=== PATIENT | male | born 1965 | race Caucasian/White ===

== ENCOUNTER 2016-09-12 11:49 | Inpatient (IN) | payer BC, MEDICARE ==
[~2016-09-12] VITALS: Ht 167.6 cm; Wt 112.9 kg
[2016-09-12 11:52] VITALS: BP 134/85; PULSE 88; RESP 20; TEMP 99.7; O2SAT 98
--- NOTE | 2016-09-12 11:57 | PD ---
Physical Exam Date Seen by Provider: Sep 12, 2016 Time Seen by Provider: 11:55 Data Data Last Documented VS Vital Signs Date Time Temp Pulse Resp B/P Pulse Ox O2 Delivery O2 Flow Rate FiO2 09/12/16 11:52 99.7 88 20 134/85 98 Room Air MDM Supervised Visit with ЕЛЕНА: No Narrative Course 50 YO M with complaint redness, pain of the LLE x 4 days. ++F/C. ++N/V. IV Rocephin at [facility]. PO Bactrim since Tuesday. Vitals reviewed. Seen in triage, awaiting bed placement. Kellen Pineda Sep 12, 2016 11:57
[2016-09-12] MEDS ORDERED: PIPERACIL-TAZO 4.5 GM PREMIX 100 ML IV STA (12:06)
[2016-09-12] MEDS ORDERED: VANCOMYCIN INJ 1,000 MG in SODIUM CHLOR 0.9% 250 ML INJ 250 ML IV STA (12:06)
[2016-09-12 12:15] VITALS: BP 125/61; PULSE 89; RESP 20; TEMP 99.2; O2SAT 98
--- NOTE | 2016-09-12 12:15 | PD ---
HPI Chief Complaint: Edema Time Seen by Provider: 12:04 Travel History International Travel<30 days: No Contact w/Intl Traveler<30days: No Traveled to known affect area: No History of Present Illness HPI left leg swelling and redness over past 2 weeks just started on abx about 2 days ago, but concerned that is looking worse, swelling is only to LLE [facility] Social History Tobacco Use: Yes Allergies-Medications (Allergen,Severity, Reaction): Coded Allergies: No Known Allergies (Unverified , 09/12/16) Reported Meds & Prescriptions Reported Meds & Active Scripts Active No Active Prescriptions or Reported Medications Review of Systems Except as stated in HPI: all other systems reviewed are Neg Skin: Positive Lesions Physical Exam Narrative GENERAL: SKIN: Warm and dry.....LLE EDEMATOUS, CELLULITIC CHANGES SORROUNDING ENTIRE TIB FIB AREA, NO STREAKING, NO LAD HEAD: Atraumatic. Normocephalic. EYES: Pupils equal and round. No scleral icterus. No injection or drainage. ENT: No nasal bleeding or discharge. Mucous membranes pink and moist. NECK: Trachea midline. No JVD. CARDIOVASCULAR: Regular rate and rhythm. RESPIRATORY: No accessory muscle use. Clear to auscultation. Breath sounds equal bilaterally. GASTROINTESTINAL: Abdomen soft, non-tender, nondistended. Hepatic and splenic margins not palpable. MUSCULOSKELETAL: Extremities without clubbing, cyanosis, or edema. No obvious deformities. NEUROLOGICAL: Awake and alert. No obvious cranial nerve deficits. Motor grossly within normal limits. Five out of 5 muscle strength in the arms and legs. Normal speech. PSYCHIATRIC: Appropriate mood and affect; insight and judgment normal. Data Data Last Documented VS Vital Signs Date Time Temp Pulse Resp B/P Pulse Ox O2 Delivery O2 Flow Rate FiO2 09/12/16 12:15 99.2 89 20 125/61 98 Room Air Orders Complete Blood Count With Diff (09/12/16 12:06) Comprehensive Metabolic Panel (09/12/16 12:06) Prothrombin Time / Inr (Pt) (09/12/16 12:06) Act Partial Throm Time (Ptt) (09/12/16 12:06) Lactic Acid Sepsis Protocol (09/12/16 12:06) Urinalysis - C+S If Indicated (09/12/16 12:06) Blood Culture (09/12/16 12:06) Blood Glucose (09/12/16 12:06) Ecg Monitoring (09/12/16 12:06) Iv Access Insert/Monitor (09/12/16 12:06) Oximetry (09/12/16 12:06) Oxygen Administration (09/12/16 12:06) Piperacil-Tazo 4.5 Gm Premix (Zosyn 4.5 (09/12/16 12:06) Vancomycin Inj (Vancomycin Inj) (09/12/16 12:06) Us Leg Venous Doppler (09/12/16 12:06) Urine Culture (09/12/16 12:00) Acetaminophen (Tylenol) (09/12/16 14:15) Admit Order (Ed Use Only) (09/12/16 14:29) Labs Laboratory Tests Test 09/12/16 09/12/16 12:00 12:15 Urine Color YELLOW Urine Turbidity CLEAR Urine pH 8.0 Urine Specific [place] 1.021 Urine Protein 30 mg/dL Urine Glucose (UA) 150 mg/dL Urine Ketones NEG mg/dL Urine Occult Blood SMALL Urine Nitrite NEG Urine Bilirubin NEG Urine Urobilinogen 2.0 MG/DL Urine Leukocyte Esterase NEG Urine RBC 11 /hpf Urine WBC 2 /hpf Urine Bacteria RARE /hpf Microscopic Urinalysis Comment CATH-CULTURE IND White Blood Count 12.2 TH/MM3 Red Blood Count 4.20 MIL/MM3 Hemoglobin 12.9 GM/DL Hematocrit 37.9 % Mean Corpuscular Volume 90.2 FL Mean Corpuscular Hemoglobin 30.7 PG Mean Corpuscular Hemoglobin 34.0 % Concent Red Cell Distribution Width 14.0 % Platelet Count 181 TH/MM3 Mean Platelet Volume 8.5 FL Neutrophils (%) (Auto) 88.5 % Lymphocytes (%) (Auto) 6.6 % Monocytes (%) (Auto) 3.9 % Eosinophils (%) (Auto) 0.9 % Basophils (%) (Auto) 0.1 % Neutrophils # (Auto) 10.8 TH/MM3 Lymphocytes # (Auto) 0.8 TH/MM3 Monocytes # (Auto) 0.5 TH/MM3 Eosinophils # (Auto) 0.1 TH/MM3 Basophils # (Auto) 0.0 TH/MM3 CBC Comment DIFF FINAL Differential Comment Prothrombin Time 11.0 SEC Prothromb Time International 1.0 RATIO Ratio Activated Partial 35.2 SEC Thromboplast Time Sodium Level 135 MEQ/L Potassium Level 4.3 MEQ/L Chloride Level 102 MEQ/L Carbon Dioxide Level 25.3 MEQ/L Anion Gap 8 MEQ/L Blood Urea Nitrogen 8 MG/DL Creatinine 1.07 MG/DL Estimat Glomerular Filtration 73 ML/MIN Rate Random Glucose 168 MG/DL Lactic Acid Level 1.6 mmol/L Calcium Level 8.6 MG/DL Total Bilirubin 0.3 MG/DL Aspartate Amino Transf 29 U/L (AST/SGOT) Alanine Aminotransferase 68 U/L (ALT/SGPT) Alkaline Phosphatase 77 U/L Total Protein 6.8 GM/DL Albumin 3.0 GM/DL MDM Medical Decision Making Medical Screen Exam Complete: Yes Emergency Medical Condition: Yes Medical Record Reviewed: Yes Differential Diagnosis CELLULITIS V DVT Narrative Course ULTRASOUND NEG DVT, BUT DID SHOW LARGE LYMPHADENOPATHY, C/W LLE CELLULITIS WILL ADMIT FOR IV ABX (GIVEN ZOSYN AND VANCO IN ED) Physician Communication Physician Communication D/W DR LANCASTER FOR ADMISSION AND FURTHER CARE Diagnosis Primary Impression: LLE CELLULITIS Admitting Information Admitting Physician Requests: Observation Scripts No Active Prescriptions or Reported Meds Willis Saini MD Sep 12, 2016 12:15
[2016-09-12 12:42] LABS: AUTOMATED NEUTROPHIL # 10.8 TH/MM3 (1.8-7.7); BASOPHIL % 0.1 % (0.0-2.0); EOSINOPHIL # 0.1 TH/MM3 (0-0.4); EOSINOPHIL % 0.9 % (0.0-4.0); HEMATOCRIT 37.9 % (39.0-51.0); HEMO FLAGS DIFF FINAL; LYMPH % 6.6 % (9.0-44.0); LYMPHOCYTE # 0.8 TH/MM3 (1.0-4.8); MEAN CELL VOLUME 90.2 FL (80.0-100.0); MEAN CORPUSCULAR HEMOGLOBIN 30.7 PG (27.0-34.0); MONO % 3.9 % (0.0-8.0); NEUT % 88.5 % (16.0-70.0); PLATELET COUNT 181 TH/MM3 (150-450); WHITE BLOOD COUNT 12.2 TH/MM3 (4.0-11.0)
[2016-09-12 12:50] LABS: BACTERIA, URINE RARE /hpf; BLOOD, URINE SMALL (NEG); COMMENT (UR) CATH-CULTURE IND; CULTURE IF INDICATED CATH CULTURE IND; GLUCOSE,URINE 150 mg/dL (NEG); KETONE, URINE NEG (NEG); NITRITE,URINE NEG (NEG); URINE COLOR YELLOW (YELLW/STRAW)
[2016-09-12 13:07] LABS: APTT (PATIENT) 35.2 SEC (24.3-30.1)
[2016-09-12 13:14] LABS: ALKALINE PHOSPHATASE 77 U/L (45-117); TOTAL BILIRUBIN ADULT 0.3 MG/DL (0.2-1.0)
[2016-09-12 13:18] LABS: ALT (GPT) 68 U/L (12-78); ANION GAP 8 MEQ/L (5-15); AST (GOT) 29 U/L (15-37); BICARBONATE 25.3 MEQ/L (21.0-32.0); BLOOD UREA NITROGEN 8 MG/DL (7-18); CHLORIDE 102 MEQ/L (98-107); GLOMERULAR FILTRATION RATE 73 ML/MIN (>89); POTASSIUM 4.3 MEQ/L (3.5-5.1); SODIUM (NA) 135 MEQ/L (136-145)
[2016-09-12] MEDS ORDERED: ACETAMINOPHEN 325 MG TAB PO ONE (14:15)
--- NOTE | 2016-09-12 14:40 | RADRPT ---
EXAM DATE/TIME: 09/12/2016 13:46 [place] COMPARISON: No previous studies available for comparison. INDICATIONS : Left leg swelling. MEDICAL HISTORY : Re-occuring cellulitis. Alcohol use. SURGICAL HISTORY : None. ENCOUNTER: Initial ACUITY: 2 weeks PAIN SCORE: 6/10 LOCATION: Left leg. TECHNIQUE: Venous ultrasound of the leg was performed from the inguinal ligament to the proximal calf. Real-poppy e, color Doppler and spectral tracing, compression and augmentation techniques were used. FINDINGS: There is normal compressibility of the deep venous system from the inguinal region to the proximal ca lf. No echogenic clot is seen in the lumen of the common femoral, femoral, popliteal, and posterior tibial veins. There is a normal response of the venous system to proximal and distal augmentation an d respiration. Incidental note is made of multiple enlarged left inguinal nodes with the largest measuring 4.9 x 3.3 x 2.1 cm. CONCLUSION: 1. No sonographic evidence for left lower extremity DVT. 2. Incidental note made of nonspecific but prominent left inguinal adenopathy. Clinical correlation i s recommended. Salbador Chapman MD on September 12, 2016 at 14:36 Board Certified Radiologist. This report was verified electronically.
--- NOTE | 2016-09-12 15:16 | HHI.HP ---
[facility] Primary Care Physician Geovany Meyer DO Admission Diagnosis LLE CELLULITIS FAILED OUTPATIENT THERAPY Diagnoses: Chief Complaint: leg swelling, fever, chills Travel History International Travel<30 Days: No Contact w/Intl Traveler <30 Da: No Traveled to Known Affected Are: No History of Present Illness This a 50-year-old male who is generally in good health, prior history of cellulitis of the left leg in 2016. Patient presented to the emergency room with left leg swelling, redness and fever and chills. According to the patient , he was on vacation last week and his left leg started to become swollen and tender. He had chills and fever and N/V. He went to a urgent care center and was given IV Rocephin and was prescribed by mouth Bactrim,which he has been taking. states that last year he had a similar admission at [facility] and was hospitalized for 3 days. States that the left leg always has chronic swelling and discoloration, but this was significantly more. Patient states that last night his fever went up to 102.4 and he had chills. Has had poor appetite. He denies any cough, no sputum production. States that what is moist painful is the left groin and there is swelling noted. In the emergency room, patient was evaluated. Laboratory workup completed significant for leukocytosis, WBC 12.2. He was noted with elevated blood glucose 168. Patient denies any history of diabetes. Ultrasound of the leg was completed that show large lymphadenopathy negative for DVT. Patient was started on empiric antibiotics and cultures were obtained. Lactic acid was negative. Patient is admitted for further evaluation and treatment. Review of Systems Constitutional: COMPLAINS OF: Diaphoretic episodes, Fever, Weight loss, Change in appetite, DENIES: Fatigue, Weight gain, Chills, Dizziness, Night Sweats Endocrine: DENIES: Heat/cold intolerance, Polydipsia, Polyuria, Polyphagia Eyes: DENIES: Blurred vision, Diplopia, Eye inflammation, Eye pain, Vision loss , Photosensitivity, Double Vision Ears, nose, mouth, throat: DENIES: Tinnitus, Hearing loss, Vertigo, Nasal discharge, Oral lesions, Throat pain, Hoarseness, Ear Pain, Running Nose, Epistaxis, Sinus Pain, Toothache, Odynophagia Respiratory: DENIES: Apneas, Cough, Snoring, Wheezing, Hemoptysis, Sputum production, Shortness of breath Cardiovascular: COMPLAINS OF: Lower Extremity Edema, DENIES: Chest pain, Palpitations, Syncope, Dyspnea on Exertion, PND, Orthopnea, Claudication Gastrointestinal: DENIES: Abdominal pain, Black stools, Bloody stools, Constipation, Diarrhea, Nausea, Vomiting, Difficulty Swallowing, Anorexia Genitourinary: DENIES: Sexual dysfunction, Urinary frequency, Urinary incontinence, Urgency, Hematuria, Dysuria, Nocturia, Penile Discharge, Testicular Pain, Testicular Swelling Musculoskeletal: COMPLAINS OF: Joint pain (left groin and leg pain, swelling. Redness. ), DENIES: Muscle aches, Stiffness, Joint Swelling, Back pain, Neck pain Integumentary: DENIES: Abnormal pigmentation, Nail changes, Pruritus, Rash Hematologic/lymphatic: DENIES: Bruising, Lymphadenopathy Immunologic/allergic: DENIES: Eczema, Urticaria Neurologic: DENIES: Abnormal gait, Headache, Localized weakness, Paresthesias, Seizures, Speech Problems, Tremor, Poor Balance Psychiatric: DENIES: Anxiety, Confusion, Mood changes, Depression, Hallucinations, Agitation, Suicidal Ideation, Homicidal Ideation, Delusions Past Family Social History Past Medical History Left cellulitis, was hospitalized last year on IV abx Obesity, has gained weight Elevated LFTs after taking Lamisil Past Surgical History None Reported Medications Reported Meds & Active Scripts Active No Active Prescriptions or Reported Medications Allergies: Coded Allergies: No Known Allergies (Unverified , 09/12/16) Active Ordered Medications Inpatient Medications Acetaminophen 650 mg 650 mg ONCE ONCE PO Last administered on 09/12/16 14:25 ; Start 09/12/16 at 14:15; Stop 09/12/16 at 14:16; Status DC Enoxaparin Sodium (Lovenox Inj) 40 mg Q24H SQ ; Start 09/12/16 at 15:15; Status UNV Famotidine (Pepcid) 20 mg BID PO ; Start 09/12/16 at 21:00; Status UNV Piperacillin Sod/ Tazobactam Sod (Zosyn 4.5 Gm Premix) 100 ml @ 200 mls/hr ONCE STAT IV Last administered on 09/12/16 12:22; Start 09/12/16 at 12:06; Stop 09/12/16 at 12:35; Status DC Vancomycin HCl/ Sodium Chloride (Vancomycin Inj/ NS 250 ml Inj) 250 ml @ 250 mls/hr Q12H IV ; Start 09/13/16 at 00:00 Family History mother alive and well, hx of DM father , lung cancer Social History Patient is disabled due to chronic back pain He denies any smoking, chews tobacco No alcohol, no substance abuse patient is , has children Physical Exam Vital Signs Vital Signs Date Time Temp Pulse Resp B/P Pulse Ox O2 Delivery O2 Flow Rate FiO2 09/12/16 12:15 99.2 89 20 125/61 98 Room Air 09/12/16 12:14 97 Room Air 09/12/16 12:04 Room Air 09/12/16 11:52 99.7 88 20 134/85 98 Room Air Physical Exam GENERAL: This is a well-nourished, well-developed patient, in no apparent distress. SKIN: No rashes, ecchymoses or lesions. Cool and dry. HEAD: Atraumatic. Normocephalic. No temporal or scalp tenderness. EYES: Pupils equal round and reactive. Extraocular motions intact. No scleral icterus. No injection or drainage. ENT: Nose without bleeding, purulent drainage or septal hematoma. Throat without erythema, tonsillar hypertrophy or exudate. Uvula midline. Airway patent. NECK: Trachea midline. No JVD or lymphadenopathy. Supple, nontender, no meningeal signs. CARDIOVASCULAR: Regular rate and rhythm without murmurs, gallops, or rubs. RESPIRATORY: Clear to auscultation. Breath sounds equal bilaterally. No wheezes , rales, or rhonchi. GASTROINTESTINAL: Abdomen soft, non-tender, nondistended. No hepato-splenomegaly , or palpable masses. No guarding. MUSCULOSKELETAL: Extremities without clubbing, cyanosis. No joint tenderness, effusion, or edema noted. No calf tenderness. Negative Homans sign bilaterally. Left lower extremity with significant erythema surrounding the entire tib-fib area, there is some erythema to the upper thigh and left groin. Left groin lymphadenopathy, tender to palpation. Pedal pulses 2+ bilaterally. Trace right ankle edema. NEUROLOGICAL: Awake and alert. Cranial nerves II through XII intact. Motor and sensory grossly within normal limits. Five out of 5 muscle strength in all muscle groups. Normal speech. Laboratory Laboratory Tests Test 09/12/16 09/12/16 12:00 12:15 Urine Color YELLOW Urine Turbidity CLEAR Urine pH 8.0 Urine Specific [place] 1.021 Urine Protein 30 Urine Glucose (UA) 150 Urine Ketones NEG Urine Occult Blood SMALL Urine Nitrite NEG Urine Bilirubin NEG Urine Urobilinogen 2.0 Urine Leukocyte Esterase NEG Urine RBC 11 Urine WBC 2 Urine Bacteria RARE Microscopic Urinalysis Comment CATH-CULTURE IND White Blood Count 12.2 Red Blood Count 4.20 Hemoglobin 12.9 Hematocrit 37.9 Mean Corpuscular Volume 90.2 Mean Corpuscular Hemoglobin 30.7 Mean Corpuscular Hemoglobin 34.0 Concent Red Cell Distribution Width 14.0 Platelet Count 181 Mean Platelet Volume 8.5 Neutrophils (%) (Auto) 88.5 Lymphocytes (%) (Auto) 6.6 Monocytes (%) (Auto) 3.9 Eosinophils (%) (Auto) 0.9 Basophils (%) (Auto) 0.1 Neutrophils # (Auto) 10.8 Lymphocytes # (Auto) 0.8 Monocytes # (Auto) 0.5 Eosinophils # (Auto) 0.1 Basophils # (Auto) 0.0 CBC Comment DIFF FINAL Differential Comment Prothrombin Time 11.0 Prothromb Time International 1.0 Ratio Activated Partial 35.2 Thromboplast Time Sodium Level 135 Potassium Level 4.3 Chloride Level 102 Carbon Dioxide Level 25.3 Anion Gap 8 Blood Urea Nitrogen 8 Creatinine 1.07 Estimat Glomerular Filtration 73 Rate Random Glucose 168 Lactic Acid Level 1.6 Calcium Level 8.6 Total Bilirubin 0.3 Aspartate Amino Transf 29 (AST/SGOT) Alanine Aminotransferase 68 (ALT/SGPT) Alkaline Phosphatase 77 Total Protein 6.8 Albumin 3.0 Date/Time Procedure Status Source Growth 09/12/16 12:15 Aerobic Blood Culture Received Blood Peripheral Pending 09/12/16 12:15 Anaerobic Blood Culture Received Blood Peripheral Pending 09/12/16 12:00 Urine Culture Received Urine Catheterized Urine Pending Result Diagram: 09/12/16 1215 09/12/16 1215 Assessment and Plan Problem List: (1) Failure of outpatient treatment (2) Left leg cellulitis (3) History of cellulitis (4) Obesity (5) Hyperglycemia (6) Lymphadenopathy Assessment and Plan Admit to Dr. Rene 50-year-old male presented to the emergency room with complains of left leg redness, tenderness, swelling, left groin pain. Diagnosed with cellulitis and given Rocephin and by mouth Bactrim as OP. Patient continues to have fever, chills and increased redness and tenderness. Left leg cellulitis, failure of outpatient therapy Left lymphadenopathy -Continue with empiric antibiotics Follow cultures -Patient will be ordered appropriate pain management Hyperglycemia, patient denies history of diabetes. Endorses family history maternal side Hemoglobin A1c in the morning Obesity, indicates he has gained weight since turning 41 Has been counseled about weight loss, portion control Lovenox for DVT prophylaxis Pepcid for GI prophylaxis Plan of care has been discussed with the patient and his , their questions answered in detail. Plan of care discussed with attending and registered nurse. Further management of the patient will be dependent on the hospital course This patient was seen by myself and Dr. Reen, this H&P is written on his behalf Physician Certification 2 Midnight Certification Type: Admission for Inpatient Services Order for Inpatient Services The services are ordered in accordance with Medicare regulations or non- Medicare payer requirements, as applicable. In the case of services not specified as inpatient-only, they are appropriately provided as inpatient services in accordance with the 2-midnight benchmark. Estimated LOS (days): 2 2 days is the estimated time the patient will need to remain in the hospital, assuming treatment plan goals are met and no additional complications. Post-Hospital Plan: Home Problem Qualifiers (1) Obesity: Rula Pinto Sep 12, 2016 15:16
[2016-09-12] MEDS ORDERED: DOCUSATE SODIUM 100 MG CAP PO PRN (15:30)
[2016-09-12] MEDS ORDERED: ACETAMINOPHEN 325 MG TAB PO PRN (15:30)
[2016-09-12] MEDS ORDERED: MAGNESIUM HYDROXIDE SUSP 30 ML CUP PO PRN (15:30)
[2016-09-12] MEDS ORDERED: ONDANSETRON HCL 4 MG/2 ML VIAL IV PRN (15:30)
[2016-09-12] MEDS ORDERED: ALUMINUM/MAGNESIUM/SIMETH 30 ML CUP PO PRN (15:30)
[2016-09-12 17:08] VITALS: BP 110/55; PULSE 81; RESP 24; O2SAT 99
[2016-09-12 17:34] VITALS: BP 119/68; PULSE 81; RESP 16; TEMP 100.2; O2SAT 97
[2016-09-12] MEDS: ENOXAPARIN SODIUM 40 MG/0.4 ML SYRINGE SQ SCH (17:50)
[2016-09-12] MEDS: LEVOFLOXACIN 500 MG TAB PO SCH (17:50)
[2016-09-12] MEDS: CLINDAMYCIN INJ 600 MG in SODIUM CHLORIDE 0.9% INJ 100 ML IV SCH (17:51)
[2016-09-12 20:00] VITALS: BP 132/64; PULSE 86; RESP 20; TEMP 100.9; O2SAT 95
[2016-09-12] MEDS: FAMOTIDINE 20 MG TAB PO SCH (21:23)
[2016-09-13] MEDS: CLINDAMYCIN INJ 600 MG in SODIUM CHLORIDE 0.9% INJ 100 ML IV SCH ×4 (00:57→23:59)
[2016-09-13] MEDS: VANCOMYCIN INJ 1,000 MG in SODIUM CHLOR 0.9% 250 ML INJ 250 ML IV SCH ×2 (01:14→12:16)
[2016-09-13 04:01] LABS: MEAN CELL VOLUME 90.4 FL (80.0-100.0); MEAN CORPUSCULAR HEMOGLOBIN 30.6 PG (27.0-34.0); MEAN CORPUSCULAR HGB CONC 33.8 % (32.0-36.0); PLATELET COUNT 175 TH/MM3 (150-450); RED BLOOD COUNT 3.98 MIL/MM3 (4.50-5.90); RED CELL DISTRIBUTION WIDTH 14.1 % (11.6-17.2); REVIEW FLAG FINAL; WHITE BLOOD COUNT 11.6 TH/MM3 (4.0-11.0)
[2016-09-13 04:26] LABS: ANION GAP 8 MEQ/L (5-15); BICARBONATE 24.1 MEQ/L (21.0-32.0); BLOOD UREA NITROGEN 7 MG/DL (7-18); CHLORIDE 104 MEQ/L (98-107); GLOMERULAR FILTRATION RATE 96 ML/MIN (>89); SODIUM (NA) 136 MEQ/L (136-145)
[2016-09-13 08:00] VITALS: BP 122/63; PULSE 85; RESP 18; TEMP 99.5; O2SAT 95
[2016-09-13] MEDS: LEVOFLOXACIN 500 MG TAB PO SCH (08:00)
[2016-09-13] MEDS: FAMOTIDINE 20 MG TAB PO SCH ×2 (08:00→21:13)
[2016-09-13] MEDS: ACETAMINOPHEN/HYDROcodone 325 MG/5 MG TAB PO PRN ×2 (08:01→15:01)
[2016-09-13 12:00] VITALS: BP 117/63; PULSE 78; RESP 18; TEMP 97.9; O2SAT 95
--- NOTE | 2016-09-13 12:12 | HHI.PR ---
Subjective Remarks Resting in bed, visiting with male friend Decreased appetite, states he feels like it's IV antibiotic No chest pain no shortness of breath Encouraged to constantly elevate left leg Vital signs, low-grade fever (Anisa Jimenes) Objective Objective Results - Vital Signs Date Time Temp Pulse Resp B/P Pulse Ox O2 Delivery O2 Flow Rate FiO2 09/13/16 08:00 99.5 85 18 122/63 95 09/12/16 20:00 100.9 86 20 132/64 95 09/12/16 17:34 100.2 81 16 119/68 97 09/12/16 17:08 81 24 110/55 99 Room Air 09/12/16 12:15 99.2 89 20 125/61 98 Room Air 09/12/16 12:14 97 Room Air I/O 09/12/16 09/12/16 09/12/16 09/13/16 09/13/16 09/13/16 07:00 15:00 23:00 07:00 15:00 23:00 Intake Total 660 ml 555 ml Output Total 800 ml Balance 660 ml -245 ml Intake Oral 240 ml 240 ml IV Total 420 ml 315 ml Output Urine Total 800 ml # Voids 2 3 # Bowel Movements 0 0 (Anisa Jimenes) Result Diagram: 09/13/16 0310 09/13/16 0310 ROS General: Weakness, Other (10 point ROS done, positives noted) GI: Other (anorexia) Neuro/MS: Other (3+ edema and cellulitis in right lower leg) Skin: Other (states chronic athlete's foot left foot,urticaria) (Anisa Jimenes) Physical Exam Physical Exam PHYSICAL EXAMINATION GENERAL: This is an obese male who appears to be in no acute distress. He is alert and awake HEAD: Normocephalic OROPHARYNGEAL: Oropharynx clear NECK: Supple. Trachea midline without deviation. CARDIAC: Regular rhythm, regular rate, S1 and S2 are heard. LUNGS: Clear to auscultation bilaterally volumes adequate, ABDOMEN: Round, taut, nontender, bowel sounds present EXTREMITIES: 3+ left lower extremity edema. No abrasions or petechiae noted, erythema present NEUROLOGICAL: Patient mood and affect appropriate. SKIN:Warm and moist, no drainage noted left lower extremity (Anisa Jimenes) A/P Assessment and Plan (1) Failure of outpatient treatment (2) Left leg cellulitis (3) History of cellulitis (4) Obesity (5) Hyperglycemia (6) Lymphadenopathy Plan Vital signs reviewed normal trends Labs reviewed, hemoglobin A1c pending, cytosis trending down slowly Symptoms reviewed, nausea and decreased appetite to the point of anorexia with antibiotic Bowel regimen, states BM in the past 24 hours Left leg cellulitis, failure of outpatient therapy Left lymphadenopathy continues at the ankle to right below the knee IV clindamycin, with symptoms of nausea and decreased appetite, boost ordered with meals and encouraged to drink even if he can't eat cultures negative so far Hyperglycemia, patient denies history of diabetes. Endorses family history maternal side Obesity, monitor weight and activity Supportive care Lovenox for DVT prophylaxis Pepcid for GI prophylaxis (Anisa Jimenes) Assessment and Plan pt seen and examined as above labs meds and rad data reviewed dw pt in detail this is 5th time as per pt dw [employer] technician about plan of care will shelly ID consult (Mariam Reece MD) Anisa Jimenes Sep 13, 2016 12:12 Mariam Reece MD Sep 13, 2016 13:58
[2016-09-13] MEDS: ENOXAPARIN SODIUM 40 MG/0.4 ML SYRINGE SQ SCH (15:01)
[2016-09-13 16:00] VITALS: BP 124/66; PULSE 79; RESP 19; TEMP 97.9; O2SAT 97
--- NOTE | 2016-09-13 16:34 | PD.ID.CON ---
History of Present Illness Service ID Consult Requested By Dr Waldrop Reason for Consult LLE cellulitis Primary Care Physician Geovany Meyer DO Diagnoses: History of Present Illness 50 yo male with recurrent episodes of same extremety cellulitis APparently has several episodes of LLE cellulitis Last episode 2 weeks ago was treated successfully with azythromycin, however per pt his symptoms resolved incompltely ( had some swelling , redness) and obn Tuesday he got much worse with worsening of pain, redness and swelling No obvious preceding trauma, but developped fever, chills, nausea, vomiting + low grade fever up to 100.9 Mild leukocytosis Improved on IV abx Review of Systems Except as stated in HPI: all other systems reviewed are Neg Past Family Social History Allergies: Coded Allergies: No Known Allergies (Unverified , 09/12/16) Past Medical History Left cellulitis, was hospitalized last year on IV abx Obesity, has gained weight Elevated LFTs after taking Lamisil Past Surgical History None Active Ordered Medications Medications where reviewed in EMR Antibiotics Include: vancomycin clindamycim levaquine Family History mother alive and well, hx of DM father , lung cancer Social History Patient is disabled due to chronic back pain He denies any smoking, chews tobacco No alcohol, no substance abuse patient is , has children Physical Exam Vital Signs Vital Signs Date Time Temp Pulse Resp B/P Pulse Ox O2 Delivery O2 Flow Rate FiO2 09/13/16 16:00 97.9 79 19 124/66 97 09/13/16 12:00 97.9 78 18 117/63 95 09/13/16 08:00 99.5 85 18 122/63 95 09/12/16 20:00 100.9 86 20 132/64 95 09/12/16 17:34 100.2 81 16 119/68 97 09/12/16 17:08 81 24 110/55 99 Room Air Physical Exam CONSTITUTIONAL/GENERAL: This is an obese middle aged patient, in no apparent distress. TUBES/LINES/DRAINS: SKIN: No jaundice, rashes, or lesions.. Skin temperature appropriate. Not diaphoretic. HEAD: Atraumatic. Normocephalic. EYES: Pupils equal and round and reactive. Extraocular motions intact. No scleral icterus. No injection or drainage. Fundi not examined. ENT: Hearing grossly normal. Nose without bleeding or purulent drainage. Throat without visible erythema, exudates, masses, or lesions. NECK: Trachea midline. Supple, nontender. No palpable thyroid enlargement or nodularity. CARDIOVASCULAR: Regular rate and rhythm without murmurs, gallops, or rubs. No JVD. Peripheral pulses symmetric. RESPIRATORY/CHEST: Symmetric, unlabored respirations. Clear to auscultation. Breath sounds equal bilaterally. No wheezes, rales, or rhonchi. GASTROINTESTINAL: Abdomen soft, non-tender, nondistended. No hepato-splenomegaly , or palpable masses. No guarding. Bowel sounds present. GENITOURINARY: Without palpable bladder distension. Toro catheter in place. MUSCULOSKELETAL: Extremities without clubbing, cyanosis, or edema. No joint tenderness or effusion noted. No calf tenderness. No mottling or clubbing. STATUS LOCALIS: LLE edematous, erythematou tender to palpatiomn + lymphangitis Edema seenm to improve: fine wrinkling is present No open wounds No fluctuant areas LYMPHATICS: No palpable cervical or supraclavicular adenopathy. Enlarged tender lymph nodules L groin NEUROLOGICAL: Awake and alert. Motor and sensory grossly within normal limits. Follows commands. Cognitively sharp. Moves all extremities. PSYCHIATRIC: No obvious anxiety/depression. no apparent hallucinations or other psychotic thought process. Laboratory Laboratory Tests Test 09/13/16 03:10 White Blood Count 11.6 Red Blood Count 3.98 Hemoglobin 12.2 Hematocrit 36.0 Mean Corpuscular Volume 90.4 Mean Corpuscular Hemoglobin 30.6 Mean Corpuscular Hemoglobin 33.8 Concent Red Cell Distribution Width 14.1 Platelet Count 175 Mean Platelet Volume 8.6 Sodium Level 136 Potassium Level 4.0 Chloride Level 104 Carbon Dioxide Level 24.1 Anion Gap 8 Blood Urea Nitrogen 7 Creatinine 0.85 Estimat Glomerular Filtration 96 Rate Random Glucose 101 Calcium Level 8.4 Date/Time Procedure Status Source Growth 09/12/16 12:15 Aerobic Blood Culture - Preliminary Resulted Blood Peripheral NO GROWTH IN 1 DAY 09/12/16 12:15 Anaerobic Blood Culture - Preliminary Resulted Blood Peripheral NO GROWTH IN 1 DAY 09/12/16 12:00 Urine Culture - Preliminary Resulted Urine Catheterized Urine NO GROWTH IN 24 HOURS. Result Diagram: 09/13/16 0310 09/13/16 0310 Imaging Last Impressions Lower Extremity Ultrasound 09/12/16 1206 Signed Impressions: Service Date/Time: Monday, September 12, 2016 13:46 - CONCLUSION: 1. No sonographic evidence for left lower extremity DVT. 2. Incidental note made of nonspecific but prominent left inguinal adenopathy. Clinical correlation is recommended. Salbador Chapman MD Assessment and Plan Assessment and Plan Recurrent LLE cellulitis, liely streptococcus SIRS, Fever, leukocyutosis cont clindamycin start cefazoline dc vancomycin, levaquine Discussed Condition With pt, spouse @ bs Magy Mandujano MD Sep 13, 2016 16:34
[2016-09-13 16:52] LABS: HEMOGLOBIN A1a 1.1 %; HEMOGLOBIN A1b 0.9 %; HEMOGLOBIN Ao 84.7 %; HEMOGLOBIN F 0.9 %; HEMOGLOBIN LA1C 1.8 %; HEMOGLOBIN P3 3.9 %
[2016-09-13 20:00] VITALS: BP 136/65; PULSE 77; RESP 18; TEMP 99.3; O2SAT 94
[2016-09-13] MEDS: ceFAZolin 2 GM PREMIX 50 ML IV SCH (23:59)
[2016-09-14] VITALS: BP 129/74; PULSE 87; RESP 19; TEMP 98.6; O2SAT 97
[2016-09-14] MEDS: ceFAZolin 2 GM PREMIX 50 ML IV SCH ×3 (04:14→22:00)
[2016-09-14 08:00] VITALS: BP 123/74; PULSE 81; RESP 18; TEMP 98.8; O2SAT 94
[2016-09-14] MEDS: CLINDAMYCIN INJ 600 MG in SODIUM CHLORIDE 0.9% INJ 100 ML IV SCH (08:17)
[2016-09-14] MEDS: FAMOTIDINE 20 MG TAB PO SCH ×2 (08:17→21:51)
[2016-09-14] MEDS: ACETAMINOPHEN/HYDROcodone 325 MG/5 MG TAB PO PRN ×3 (08:26→22:04)
--- NOTE | 2016-09-14 10:26 | HHI.PR ---
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 tarik ID input (Mariam Reece MD) Objective Objective Results - Vital Signs Date Time Temp Pulse Resp B/P Pulse Ox O2 Delivery O2 Flow Rate FiO2 09/14/16 08:00 98.8 81 18 123/74 94 09/14/16 00:00 98.6 87 19 129/74 97 09/13/16 20:00 99.3 77 18 136/65 94 09/13/16 16:00 97.9 79 19 124/66 97 09/13/16 12:00 97.9 78 18 117/63 95 I/O 09/13/16 09/13/16 09/13/16 09/14/16 09/14/16 09/14/16 07:00 15:00 23:00 07:00 15:00 23:00 Intake Total 555 ml 459 ml 240 ml 240 ml Output Total 800 ml Balance -245 ml 459 ml 240 ml 240 ml Intake Oral 240 ml 240 ml 240 ml 240 ml IV Total 315 ml 219 ml Output Urine Total 800 ml # Voids 3 6 2 2 # Bowel Movements 0 0 0 0 (Anisa Jimenes) Result Diagram: 09/13/16 0310 09/13/16 0310 ROS General: Other (10 point ROS done positives noted) Neuro/MS: Other (left lower extremity with edema and urticaria) Skin: Itching, Rash (cellulitis left lower leg elevated on pillows) (Anisa Jimenes) Physical Exam Physical Exam PHYSICAL EXAMINATION GENERAL: This is a well-developed obese male who appears to be in no acute distress. He is alert and awake, left leg elevated on pillows HEAD: Normocephalic OROPHARYNGEAL: Oropharynx clear NECK: Supple. CARDIAC: Regular rhythm, regular rate, S1 and S2 are heard. Murmur soft, left sternal border LUNGS: Clear to auscultation bilaterally. ABDOMEN: Soft, nontender, round obese EXTREMITIES: Lower extremity edema reflux left leg with urticaria. NEUROLOGICAL: Patient mood and affect appropriate, speech is clear (Anisa Jimenes) A/P Assessment and Plan (1) Failure of outpatient treatment (2) Left leg cellulitis (3) History of cellulitis (4) Obesity (5) Hyperglycemia (6) Lymphadenopathy Plan Vital signs reviewed normal trends, afebrile today Labs reviewed, hemoglobin A1c 6.2, discussed options of diet with no added sugar , patient will need to monitor even as an outpatient he is diet, exercise program, weight loss Needs to be followed by his PCP after he is discharged. Symptoms reviewed, states no nausea vomiting appetite improved this a.m. urticaria left lower extremity, patient is scratching and rubbing. Bowel regimen, states BM in the past 48 hours Left leg cellulitis, failure of outpatient therapy Left lymphadenopathy continues at the ankle to right below the knee, needs constant elevation ID consult appreciate input IV clindamycin, added Cefazoline IV cultures negative so far Hyperglycemia, mild, A1c 6.2. We will change diet to no added sugar and discuss lifestyle changes with patient. Some of his hyperglycemia may be due to the cellulitis/infection Monitored Obesity, monitor weight and activity Supportive care Lovenox for DVT prophylaxis Pepcid for GI prophylaxis Discussed with RN Discussed with Dr. 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
[2016-09-14 12:00] VITALS: BP 120/69; PULSE 73; RESP 17; TEMP 98.1; O2SAT 96
[2016-09-14] MEDS: CALAMINE/PRAMOXINE LOTION 180 ML BTL TOPICAL SCH ×2 (12:04→22:04)
--- NOTE | 2016-09-14 13:08 | HHI.IDPN ---
Subjective Subjective Remarks doing better no fever was conserned about his UA deniese disuria Antibiotics cefazolin clinda Allergies: Coded Allergies: No Known Allergies (Unverified , 09/12/16) Objective . Vital Signs Date Time Temp Pulse Resp B/P Pulse Ox O2 Delivery O2 Flow Rate FiO2 09/14/16 12:00 98.1 73 17 120/69 96 09/14/16 08:00 98.8 81 18 123/74 94 09/14/16 00:00 98.6 87 19 129/74 97 09/13/16 20:00 99.3 77 18 136/65 94 09/13/16 16:00 97.9 79 19 124/66 97 09/13/16 09/13/16 09/14/16 14:59 22:59 06:59 Intake Total 459 ml 240 ml 240 ml Balance 459 ml 240 ml 240 ml Intake Oral 240 ml 240 ml 240 ml IV Total 219 ml # Voids 6 2 2 # Bowel Movements 0 0 0 . Laboratory Tests Test 09/13/16 03:10 White Blood Count 11.6 TH/MM3 Red Blood Count 3.98 MIL/MM3 Hemoglobin 12.2 GM/DL Hematocrit 36.0 % Mean Corpuscular Volume 90.4 FL Mean Corpuscular Hemoglobin 30.6 PG Mean Corpuscular Hemoglobin 33.8 % Concent Red Cell Distribution Width 14.1 % Platelet Count 175 TH/MM3 Mean Platelet Volume 8.6 FL Laboratory Tests Test 09/13/16 03:10 Sodium Level 136 MEQ/L Potassium Level 4.0 MEQ/L Chloride Level 104 MEQ/L Carbon Dioxide Level 24.1 MEQ/L Anion Gap 8 MEQ/L Blood Urea Nitrogen 7 MG/DL Creatinine 0.85 MG/DL Estimat Glomerular Filtration 96 ML/MIN Rate Random Glucose 101 MG/DL Hemoglobin A1c 6.2 % Calcium Level 8.4 MG/DL Microbiology Date/Time Procedure Status Source Growth 09/12/16 12:00 Urine Culture - Final Complete Urine Catheterized Urine NO GROWTH IN 48 HOURS. 09/12/16 12:05 Aerobic Blood Culture - Preliminary Resulted Blood Peripheral NO GROWTH IN 2 DAYS 09/12/16 12:05 Anaerobic Blood Culture - Preliminary Resulted Blood Peripheral NO GROWTH IN 2 DAYS 09/12/16 12:15 Aerobic Blood Culture - Preliminary Resulted Blood Peripheral NO GROWTH IN 2 DAYS 09/12/16 12:15 Anaerobic Blood Culture - Preliminary Resulted Blood Peripheral NO GROWTH IN 2 DAYS Imaging Last Impressions Lower Extremity Ultrasound 09/12/16 1206 Signed Impressions: Service Date/Time: Monday, September 12, 2016 13:46 - CONCLUSION: 1. No sonographic evidence for left lower extremity DVT. 2. Incidental note made of nonspecific but prominent left inguinal adenopathy. Clinical correlation is recommended. Salbador Chapman MD Physical Exam CONSTITUTIONAL/GENERAL: This is an obese middle aged patient, in no apparent distress. TUBES/LINES/DRAINS: SKIN: No jaundice, rashes, or lesions.. CARDIOVASCULAR: Regular rate and rhythm without murmurs, gallops, or rubs. No JVD. Peripheral pulses symmetric. RESPIRATORY/CHEST: Symmetric, unlabored respirations. Clear to auscultation. GASTROINTESTINAL: Abdomen soft, non-tender, nondistended. No hepato-splenomegaly , or palpable masses. GENITOURINARY: Without palpable bladder distension. MUSCULOSKELETAL: Extremities without clubbing, cyanosis, or edema. STATUS LOCALIS: LLE edematous, erythematou tender to palpatiomn: improved + lymphangitis : improved Edema seenm to improve: fine wrinkling is present No open wounds No fluctuant areas LYMPHATICS: No palpable cervical or supraclavicular adenopathy. Enlarged tender lymph nodules L groin - less tender NEUROLOGICAL: Awake and alert. Motor and sensory grossly within normal limits. Follows commands. Cognitively sharp. Moves all extremities. PSYCHIATRIC: No obvious anxiety/depression. no apparent hallucinations or other psychotic thought process. Assessment & Plan Remarks Recurrent LLE cellulitis, liely streptococcus SIRS, Fever, leukocyutosis: fever resolved No clinical e/o UTI Has microscopic hematuria dc clindamycin, cont cefazoline Anticipate d/c in 1-2 days on po abx if cont o improve Refer to urologist to [place] microscopic hematuria Magy Mandujano MD Sep 14, 2016 13:08
[2016-09-14 16:00] VITALS: BP 151/81; PULSE 79; RESP 17; TEMP 99; O2SAT 97
[2016-09-14] MEDS: ENOXAPARIN SODIUM 40 MG/0.4 ML SYRINGE SQ SCH (16:00)
[2016-09-14 20:00] VITALS: BP 127/70; PULSE 76; RESP 17; TEMP 98.9; O2SAT 97
[2016-09-15] VITALS: BP 115/66; PULSE 77; RESP 17; TEMP 98.6; O2SAT 97
[2016-09-15] MEDS: FAMOTIDINE 20 MG TAB PO SCH ×2 (00:28→20:47)
[2016-09-15] MEDS: CALAMINE/PRAMOXINE LOTION 180 ML BTL TOPICAL SCH ×2 (00:28→20:48)
[2016-09-15] MEDS: ceFAZolin 2 GM PREMIX 50 ML IV SCH ×3 (04:03→20:48)
[2016-09-15 08:00] VITALS: BP 128/78; PULSE 81; RESP 18; TEMP 98.3; O2SAT 96
[2016-09-15] MEDS: ACETAMINOPHEN/HYDROcodone 325 MG/5 MG TAB PO PRN ×2 (08:25→20:54)
--- NOTE | 2016-09-15 10:48 | HHI.PR ---
Subjective Remarks Up moving around in room No chest pain no shortness of breath Mild improvement with erythema left leg but still persist Needs outpatient following and PCP (Anisa Jimenes) Objective Objective Results - Vital Signs Date Time Temp Pulse Resp B/P Pulse Ox O2 Delivery O2 Flow Rate FiO2 09/15/16 08:00 98.3 81 18 128/78 96 09/15/16 00:00 98.6 77 17 115/66 97 09/14/16 20:00 98.9 76 17 127/70 97 09/14/16 16:00 99.0 79 17 151/81 97 09/14/16 12:00 98.1 73 17 120/69 96 I/O 09/14/16 09/14/16 09/14/16 09/15/16 09/15/16 09/15/16 07:00 15:00 23:00 07:00 15:00 23:00 Intake Total 240 ml 560 ml 240 ml 240 ml Output Total 600 ml Balance 240 ml 560 ml 240 ml -360 ml Intake Oral 240 ml 360 ml 240 ml 240 ml IV Total 200 ml Output Urine Total 600 ml # Voids 2 6 3 # Bowel Movements 0 0 (Anisa Jimenes) Result Diagram: 09/13/16 0310 09/13/16 0310 ROS General: Other (10 point ROS done positives noted) Neuro/MS: Other (left lower leg with cellulitis, athlete's foot left foot history of) Skin: Itching (left lower leg) (Anisa Jimenes) Physical Exam Physical Exam PHYSICAL EXAMINATION GENERAL: This is a well-developed, well-nourished male who appears to be in no acute distress. He is alert and awake, HEAD: Normocephalic without any lesion or mass noted. Facial features appear symmetric. OROPHARYNGEAL: Oropharynx without erythema or edema. NECK: Supple. No nuchal rigidity or lymphadenopathy. Trachea midline without deviation. CARDIAC: Regular rhythm, regular rate, S1 and S2 are heard. LUNGS: Clear to auscultation bilaterally no wheezes rales or rhonchi No use of accessory muscles on inspiration or expiration. ABDOMEN: Soft, nontender, no organomegaly or masses. Bowel sounds are heard in all four quadrants. No rebound. No guarding. EXTREMITIES: Left lower leg edema and erythema mild improvement NEUROLOGICAL: Patient mood and affect appropriate. No focal deficit SKIN:Warm and moist Urticaria left lower leg (Anisa Jimenes) A/P Assessment and Plan (1) Failure of outpatient treatment (2) Left leg cellulitis (3) History of cellulitis (4) Obesity (5) Hyperglycemia (6) Lymphadenopathy 7. Anemia Plan Vital signs reviewed normal trends, Labs reviewed, hemoglobin A1c 6.2, discussed options of diet with no added sugar , patient will need to monitor even as an outpatient he is diet, exercise program, weight loss Needs to be followed by his PCP after he is discharged. Needs a OP PCP. Anemia mild, no acute blood loss noted Symptoms reviewed, urticaria on lower extremity improved using lotion. Approximately 35% less erythema noted left lower extremity Bowel regimen, needs laxative today if no BM Left leg cellulitis, failure of outpatient therapy Left lymphadenopathy continues at the ankle to right below the knee, needs constant elevation, mild improvement urticaria percent better ID consult appreciate input IV clindamycin, added Cefazoline IV, cultures negative. Patient has chronic issues with athlete's foot and fungal infections in that left foot. Encourage patient to use outpatient fungal meds on a regular basis. Hyperglycemia, mild, A1c 6.2. We will change diet to no added sugar and discuss lifestyle changes with patient. Some of his hyperglycemia may be due to the cellulitis/infection Monitored Obesity, monitor weight and activity Supportive care Lovenox for DVT prophylaxis Pepcid for GI prophylaxis DC planning, patient needs PCP. CM to assist Discussed with RN Discussed with Dr. Reece, seen on his behalf Discussed with patient (Anisa Jimenes) Assessment and Plan Patient seen and examined as above Medications and labs reviewed Plan of care and above note reviewed with [employer] Discussed with RN Discussed with patient and on phone Continue current management Appreciate consultants input (Mariam Reece MD) Anisa Jimenes Sep 15, 2016 10:48 Mariam Reece MD Sep 15, 2016 15:35
[2016-09-15 12:00] VITALS: BP_SYST 117; BP_SYST 134; BP_DIAS 74; BP_DIAS 79; PULSE 75; PULSE 84; RESP 17; RESP 19; TEMP 96.7; TEMP 99.1; O2SAT 95; O2SAT 96
[2016-09-15] MEDS: ENOXAPARIN SODIUM 40 MG/0.4 ML SYRINGE SQ SCH (13:11)
--- NOTE | 2016-09-15 15:37 | HHI.IDPN ---
Subjective Subjective Remarks doing well no fever Antibiotics cefazolin clinda Allergies: Coded Allergies: No Known Allergies (Unverified , 09/12/16) Objective . Vital Signs Date Time Temp Pulse Resp B/P Pulse Ox O2 Delivery O2 Flow Rate FiO2 09/15/16 12:00 96.7 75 17 117/74 95 09/15/16 09:25 18 09/15/16 08:00 98.3 81 18 128/78 96 09/15/16 00:00 98.6 77 17 115/66 97 09/14/16 20:00 98.9 76 17 127/70 97 09/14/16 16:00 99.0 79 17 151/81 97 09/14/16 09/14/16 09/15/16 15:00 23:00 07:00 Intake Total 560 ml 240 ml 240 ml Output Total 600 ml Balance 560 ml 240 ml -360 ml Intake Oral 360 ml 240 ml 240 ml IV Total 200 ml Output Urine Total 600 ml # Voids 6 3 # Bowel Movements 0 Imaging Last Impressions Lower Extremity Ultrasound 09/12/16 1206 Signed Impressions: Service Date/Time: Monday, September 12, 2016 13:46 - CONCLUSION: 1. No sonographic evidence for left lower extremity DVT. 2. Incidental note made of nonspecific but prominent left inguinal adenopathy. Clinical correlation is recommended. Salbador Chapman MD Physical Exam CONSTITUTIONAL/GENERAL: This is an obese middle aged patient, in no apparent distress. TUBES/LINES/DRAINS: SKIN: No jaundice, rashes, or lesions.. RESPIRATORY/CHEST: Symmetric, unlabored respirations. HEART: regualr rate and rhytm, no murmurs MUSCULOSKELETAL: Extremities without clubbing, cyanosis, or edema. STATUS LOCALIS: LLE edema and erythema cont to improve Not tender to palpatiomn + lymphangitis : resolved L inguinal lymphadenopathy is resolving, not tender to touch Edema seenm to improve: fine wrinkling is present No open wounds No fluctuant areas NEUROLOGICAL: Awake and alert. Non focal Assessment & Plan Remarks Recurrent LLE cellulitis, likely streptococcus SIRS, Fever, leukocyutosis: r resolved blood clx are negative No clinical e/o UTI Has microscopic hematuria dc cefazoline OK to dc home' Cont abx at home (Keflex) Pt need to fu with lympedema spechialist to control hie chronic LLE edema Pt needs to be refered to urologist to [place] microscopic hematuria Magy Mandujano MD Sep 15, 2016 15:37
[2016-09-15] MEDS ORDERED: CEPH-460 PO (15:38)
[2016-09-15 20:00] VITALS: BP 119/71; PULSE 77; RESP 17; TEMP 99; O2SAT 96
[2016-09-16] VITALS: BP 122/76; PULSE 76; RESP 17; TEMP 98.7; O2SAT 95
[2016-09-16] MEDS: ceFAZolin 2 GM PREMIX 50 ML IV SCH (04:33)
[2016-09-16] MEDS: ACETAMINOPHEN/HYDROcodone 325 MG/5 MG TAB PO PRN (04:37)
[2016-09-16 08:00] VITALS: BP 125/74; PULSE 73; RESP 18; TEMP 97.2; O2SAT 95
[2016-09-16] MEDS: FAMOTIDINE 20 MG TAB PO SCH (08:12)
[2016-09-16] MEDS: CALAMINE/PRAMOXINE LOTION 180 ML BTL TOPICAL SCH (08:13)
--- NOTE | 2016-09-16 08:58 | HHI.PR ---
Subjective Remarks Up moving around in room No acute pain Erythema left leg major improvement Needs outpatient following and PCP Also has recommendations to follow up with lymphedema specialist and urologist per ID (Anisa Jimenes) Objective Objective Results - Vital Signs Date Time Temp Pulse Resp B/P Pulse Ox O2 Delivery O2 Flow Rate FiO2 09/16/16 08:00 97.2 73 18 125/74 95 09/16/16 00:00 98.7 76 17 122/76 95 09/15/16 20:00 99.0 77 17 119/71 96 09/15/16 12:00 99.1 84 19 134/79 96 09/15/16 12:00 96.7 75 17 117/74 95 09/15/16 09:25 18 I/O 09/15/16 09/15/16 09/15/16 09/16/16 09/16/16 09/16/16 07:00 15:00 23:00 07:00 15:00 23:00 Intake Total 240 ml 720 ml 290 ml 290 ml Output Total 600 ml Balance -360 ml 720 ml 290 ml 290 ml Intake Oral 240 ml 720 ml 240 ml 240 ml IV Total 50 ml 50 ml Output Urine Total 600 ml # Voids 7 3 1 # Bowel Movements 2 1 (Anisa Jimenes) Result Diagram: 09/13/16 0310 09/13/16 0310 ROS General: Weakness (mild), Other (10 point ROS done positives noted) /CDC ASSOCIATE: Other (no problems voiding) Neuro/MS: Other (left lower leg edema, cellulitis improving) (Anisa Jimenes) Physical Exam Physical Exam PHYSICAL EXAMINATION GENERAL: This is an obese well-developed, well-nourished male who appears to be in no acute distress. He is alert and awake, talkative HEAD: Normocephalic without any lesion or mass noted. Facial features appear symmetric. OROPHARYNGEAL: Oropharynx clear NECK: Supple. No nuchal rigidity or lymphadenopathy. Trachea midline without deviation. CARDIAC: Regular rhythm, regular rate, S1 and S2 are heard. LUNGS: Clear to auscultation bilaterally. No wheezes or rhonchi noted ABDOMEN: Round obese Soft, nontender, no organomegaly or masses. Bowel sounds active EXTREMITIES: Left lower leg edema. Pulses intact, left lower leg cellulitis improving 70% NEUROLOGICAL: Patient mood and affect appropriate. No focal deficit SKIN:Warm and moist (Anisa Jimenes) A/P Assessment and Plan (1) Failure of outpatient treatment (2) Left leg cellulitis (3) History of cellulitis (4) Obesity (5) Hyperglycemia (6) Lymphadenopathy 7. Anemia Plan Vital signs reviewed normal trends, Labs reviewed, hemoglobin A1c 6.2, discussed options of diet with no added sugar , patient will need to monitor even as an outpatient he is diet, exercise program, weight loss Needs to be followed by his PCP. Patient states has found him somewhat follow-up with Anemia mild, no acute blood loss noted Symptoms reviewed, urticaria on lower extremity improved using lotion. Encouraged to continue to use as needed at home Bowel regimen, bowel movements multiple times yesterday. Soft normal Appetite good Left leg cellulitis, failure of outpatient therapy Left lymphadenopathy continues at the ankle to right below the knee, ambulating in room without acute distress, recommendation per ID to see lymphedema specialist and outpatient ID consult appreciate input, patient will go home on by mouth Keflex Also recommends that he see a urologist for microscopic hematuria, patient is noted to have some mild anemia Patient has chronic issues with athlete's foot and fungal infections in that left foot. Encourage patient to use outpatient fungal meds on a regular basis. Hyperglycemia, mild, A1c 6.2. We will change diet to no added sugar and discuss lifestyle changes with patient. Some of his hyperglycemia may be due to the cellulitis/infection Monitored Obesity, monitor weight and activity Home today, medically stable to follow-up with C[facility] as outpatient Lovenox for DVT prophylaxis Pepcid for GI prophylaxis Discussed with RN Discussed with Dr. Reece, seen on his behalf Discussed with patient (Anisa Jimenes) Assessment and Plan evaluation done as above dw ID yesterday in detail plan for dc today to followup pcp and urology as outpt pt understood qasim dumontp about above plan of care (Maraim Reece MD) Anisa Jimenes Sep 16, 2016 08:58 Mariam Reece MD Sep 16, 2016 10:30
--- NOTE | 2016-09-16 09:51 | HHI.FF ---
Face to Face Verification Diagnosis: (1) Hyperglycemia (2) Lymphadenopathy (3) Obesity (4) Left leg cellulitis (5) History of cellulitis (6) Failure of outpatient treatment Home Health Nursing Order: Signs/symptoms of disease process (chronic left leg lymphedema and cellulitis) Nursing assessment with vital signs I have seen patient Saran Anguiano on 09/16/16. My clinical findings support the need for the requested home health care services because: Med compliance is questionable Infection w/ risk of complications I certify that my clinical findings support that this patient is homebound because: Impaired cognitive ability/safety Has failed outpatient therapy, with chronic lymphedema and cellulitis. Needs evaluation for several months and compliance Anisa Jimenes Sep 16, 2016 09:51
--- NOTE | 2016-09-16 17:49 | HHI.DS ---
Discharge Summary Admission Date Sep 12, 2016 at 15:05 Discharge Date: Sep 16, 2016 Admitting Diagnosis LLE CELLULITIS FAILED OUTPATIENT THERAPY (1) Failure of outpatient treatment Diagnosis: Secondary (2) Left leg cellulitis Diagnosis: Principal (3) History of cellulitis Diagnosis: Secondary (4) Obesity Diagnosis: Secondary (5) Hyperglycemia Diagnosis: Secondary (6) Lymphadenopathy Diagnosis: Principal Brief History This was a 50-year-old male who is generally in good health, prior history of cellulitis of the left leg in 2016. Patient presented to the emergency room with left leg swelling, redness and fever and chills. According to the patient , he was on vacation last week and his left leg started to become swollen and tender. He had chills and fever and N/V. He went to a urgent care center and was given IV Rocephin and was prescribed by mouth Bactrim,which he has been taking. stated that last year he had a similar admission at [facility] and was hospitalized for 3 days. Stated that the left leg always had chronic swelling and discoloration, but this was significantly more. Patient stated that last night his fever went up to 102.4 and he had chills. Has had poor appetite. He denied any cough, no sputum production. Stated that what is moist painful is the left groin and there is swelling noted. CBC/BMP: 09/13/16 0310 09/13/16 0310 Imaging Last Impressions Lower Extremity Ultrasound 09/12/16 1206 Signed Impressions: Service Date/Time: Monday, September 12, 2016 13:46 - CONCLUSION: 1. No sonographic evidence for left lower extremity DVT. 2. Incidental note made of nonspecific but prominent left inguinal adenopathy. Clinical correlation is recommended. Salbador Chapman MD PE at Discharge PHYSICAL EXAMINATION GENERAL: obese well-developed, well-nourished male who appeard to be in no acute distress. He was alert and awake, talkative HEAD: Normocephalic without any lesion or mass noted. Facial features appear symmetric. OROPHARYNGEAL: Oropharynx clear NECK: Supple. No nuchal rigidity or lymphadenopathy. Trachea midline without deviation. CARDIAC: Regular rhythm, regular rate, S1 and S2 are heard. LUNGS: Clear to auscultation bilaterally. No wheezes or rhonchi noted ABDOMEN: Round obese Soft, nontender, no organomegaly or masses. Bowel sounds active EXTREMITIES: Left lower leg edema. Pulses intact, left lower leg cellulitis improving 70% NEUROLOGICAL: Patient mood and affect appropriate. No focal deficit SKIN:Warm and moist Hospital Course In the emergency room, patient was evaluated. Laboratory workup completed significant for leukocytosis , WBC 12.2. He was noted with elevated blood glucose 168. Patient denies any history of diabetes. Ultrasound of the leg was completed that show large lymphadenopathy negative for DVT. Patient was started on empiric antibiotics and cultures were obtained. Lactic acid was negative. Patient is admitted for further evaluation and treatment. These are the diagnoses that were used to treat the patient during his hospital stay and regulate his plan of care. (1) Failure of outpatient treatment (2) Left leg cellulitis (3) History of cellulitis (4) Obesity (5) Hyperglycemia (6) Lymphadenopathy 7. Anemia Vital signs reviewed every 4 hours and when necessary during his hospital stay. Any abnormals were treated or monitored. In the first 24 hours he did have some low-grade fever Labs reviewed, hemoglobin A1c 6.2, discussed options of diet with no added sugar , patient will need to monitor even as an outpatient he is diet, exercise program, weight loss Needs to be followed by his PCP. Patient states has found him a PCP follow -up with Anemia mild, no acute blood loss noted Symptoms reviewed, urticaria on lower extremity improved using lotion. Encouraged to continue to use as needed at home Bowel regimen, bowel movements multiple times yesterday. Soft normal, without any problems during his hospital stay Appetite good, ate 100% of most every meal Left leg cellulitis, failure of outpatient therapy Left lymphadenopathy continues at the ankle to right below the knee, maintained with constant elevation unless he had to be up for bathroom privileges up until the last day, recommendation per ID to see lymphedema specialist and outpatient ID consult appreciate input, patient will go home on by mouth Keflex for 10 more days. Also recommends that he see a urologist for microscopic hematuria, patient is noted to have some mild anemia, Patient has chronic issues with athlete's foot and fungal infections in that left foot. Encourage patient to use outpatient fungal meds on a regular basis. Hyperglycemia, mild, A1c 6.2. We will change diet to no added sugar and discuss lifestyle changes with patient. Some of his hyperglycemia may be due to the cellulitis/infection Monitored Obesity, monitor weight and activity education given medically stable to follow-up with Cait as outpatient today. Patient responded well to the antibiotic therapy and his treatment plan. Lovenox for DVT prophylaxis Pepcid for GI prophylaxis, both of these meds were used throughout the hospital stay Dr. Reece saw patient before discharge and noted his assessment evaluation done as above qasim ID yesterday in detail plan for dc today to followup pcp and urology as outpt pt understood qasim nguyen about above plan of care Pt Condition on Discharge: Stable Discharge Disposition: Disch w/ Home Health Serv Discharge Instructions DIET: Follow Instructions for: As Tolerated, No Restrictions, Diabetic Diet Activities you can perform: Regular-No Restrictions Follow up Referrals: Appointment for Follow Up PCP Follow-up Podiatry - 1 Week with Arik Castañeda DPM Urology New Medications: Cephalexin (Keflex) 500 Mg Cap 500 MG PO Q6H Infection Days 10 Ref 0 CAP Anisa Jimenes Sep 16, 2016 17:49
== END 2016-09-16 10:14 | disposition home health service (06) | DRG 603 ==
LOC: NEPC 11:49 → NEDA 14:31 → OBSVTOIN 15:05 → N07A 17:23
PROVIDERS: ADMIT Specialist; ATTEND Specialist
DX: L03.116 Cellulitis of left lower limb (principal); Z68.41 Body mass index [BMI] 40.0-44.9, adult; D64.9 Anemia, unspecified; B95.5 Unspecified streptococcus as the cause of diseases classified elsewhere; F17.220 Nicotine dependence, chewing tobacco, uncomplicated; B35.3 Tinea pedis; E66.9 Obesity, unspecified; R73.9 Hyperglycemia, unspecified; R59.0 Localized enlarged lymph nodes; R31.21 Asymptomatic microscopic hematuria; G89.29 Other chronic pain; M54.9 Dorsalgia, unspecified; L50.9 Urticaria, unspecified
CPT/HCPCS: 76937; 80048; 80053; 81001; 83036; 83605; 85025; 85027; 85610; 85730; 87040; 87086; 93971; 96365; 96367; J0690; J1650; J2405; J2543; J3370; J7050